=== PATIENT | male | born 1950 | race Caucasian/White ===

== ENCOUNTER → 2019-06-27 | Outpatient (CLI) | payer MEDICARE ==
--- NOTE | 2019-06-27 10:47 | KCIC ---
EYE FOR FOREIGN BODY History: Screening for MRI, previous metal to the eyes Comparison: None. Findings: 2 views of the orbits are submitted. No metallic foreign body is identified in the region of orbits. Impression: 1. No metallic foreign body is identified in the region of orbits. Electronically signed by: Cheikh Montaño MD (06/27/2019 10:44 AM) [id number]
--- NOTE | 2019-06-27 12:07 | KCIC ---
MR of the right shoulder HISTORY: Right shoulder pain after injury 3 months ago, not improving. TECHNIQUE: Routine multiplanar sequences are obtained. FINDINGS: The acromioclavicular joint is mildly degenerative, with small undersurface osteophytes. High-grade tear of the supraspinatus and infraspinatus tendon, with retraction of most of the tissue 3 cm. There is some linear tissue overlying the tear which may represent some intact bursal rotator cuff but this has a very irregular appearance. Subscapularis tendinosis. Small joint effusion and subdeltoid bursal effusion. Degenerative changes of the glenohumeral joint. Mild heterogeneity and irregular signal at the posterosuperior labrum compatible with degeneration or degenerative tear. There is also mild irregular signal of the remaining labrum compatible with degeneration. The biceps tendon demonstrates tendinosis and partial tearing. Slight medial shift of the tendon at the lesser tuberosity but no gross dislocation. No acute fracture. No aggressive bone destruction. Mild to moderate atrophy of infraspinatus muscle and mild atrophy of supraspinatus muscle. Mild intramuscular edema and surrounding fluid. IMPRESSION: 1. High-grade rotator cuff tear of the supraspinatus and infraspinatus tendon. This appears to be essentially full thickness with retraction although there may be a thin layer of intact overlying bursal tissue. 2. Circumferential labral degeneration or degenerative tearing, greatest posterosuperiorly. 3. Biceps tendinosis with partial tearing and mild medial shift. Electronically signed by: Ron Rolon MD (06/27/2019 12:04 PM) [id number]
== END | disposition home or self-care (01) ==
LOC: KCIC MRI 10:20
PROVIDERS: ATTEND Orthopaedic Surgery
DX: S46.011A Strain of muscle(s) and tendon(s) of the rotator cuff of right shoulder, initial encounter (principal); M25.411 Effusion, right shoulder; M62.511 Muscle wasting and atrophy, not elsewhere classified, right shoulder; M25.711 Osteophyte, right shoulder; X58.XXXA Exposure to other specified factors, initial encounter; Y93.89 Activity, other specified; Y92.89 Other specified places as the place of occurrence of the external cause; Y99.8 Other external cause status
CPT/HCPCS: 70030; 73221